=== PATIENT | male | born 1955 | race African-American/Black ===

== ENCOUNTER 2021-10-20 14:19 | Emergency (ER) | payer BC ==
[~2021-10-20] VITALS: Ht 169.7 cm; Wt 92.7 kg
[2021-10-20 14:24] VITALS: BP 133/80
--- NOTE | 2021-10-20 14:35 | NUR ---
PT AMBULATED TO ER BED 7
[2021-10-20 14:51] LABS: BASOPHILS # (AUTO) 0.1 K/uL (0.00-0.22); BASOPHILS % (AUTO) 0.8 % (0.0-2.0); EOSINOPHILS # (AUTO) 0.3 K/uL (0-0.4); EOSINOPHILS % (AUTO) 2.7 % (0.0-4.0); HEMATOCRIT 46.8 % (36-52); HEMOGLOBIN 15.4 g/dL (12.0-18.0); LYMPHOCYTES # (AUTO) 3.4 K/uL (2.0-11.5); LYMPHOCYTES % (AUTO) 35.3 % (20.5-51.1); MEAN CORPUSCULAR HEMOGLOBIN 30 pg (27-31); MEAN CORPUSCULAR HGB CONC 33 g/dL (33-37); MEAN CORPUSCULAR VOLUME 90.1 fL (80-94); MONOCYTES # (AUTO) 0.7 K/uL (0.8-1.0); MONOCYTES % (AUTO) 7.3 % (1.7-9.3); NEUTROPHILS # (AUTO) 5.2 K/uL (1.8-7.7); NEUTROPHILS % (AUTO) 53.9 % (42.2-75.2); PLATELET COUNT (AUTO) 344 K/uL (140-450); RED CELL DISTRIBUTION WIDTH 13.8 % (11.6-13.7); WHITE BLOOD COUNT (AUTO) 9.7 K/uL (4.8-10.8)
[2021-10-20 15:07] LABS: ALBUMIN 3.8 g/dL (3.4-5.0); ANION GAP 9.3 (8-16); CARBON DIOXIDE 30.2 mmol/L (21-32); CREATININE 0.9 mg/dL (0.6-1.3); POTASSIUM 4.5 mmol/L (3.5-5.1); TOTAL BILIRUBIN 0.6 mg/dL (0.0-1.0)
--- NOTE | 2021-10-20 15:39 | NUR ---
66YR OLD MALE BIB SELF C/O ROGERS LOWER EXT EDEMA. SX 3XMONTHS. PAIN 8/10. DENIES SOB OR CP. 2+ EDEMA NO PITTING. FAMILY STATES PT HAS ALSO BEEN DIZZY. PT A&OX4. FAMILY MEMEBER STATES BEHAVIOR DISORDERS. PT FAMILY AT BEDSIDE. 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 SIDE RAILS UP X2. BED AT LOWEST POSITION. NKDA DM
[2021-10-20] MEDS ORDERED: METF-430 PO (16:11)
[2021-10-20 16:45] VITALS: BP 112/65
--- NOTE | 2021-10-20 16:45 | NUR ---
Patient discharged with v/s stable. Written and verbal after care instructions given and explained. Patient alert, oriented and verbalized understanding of instructions. Ambulatory with steady gait. All questions addressed prior to discharge. ID band removed. Patient advised to follow up with PMD. Rx of metformin given. Patient educated on indication of medication including possible reaction and side effects. Opportunity to ask questions provided and answered.
== END 2021-10-20 16:45 | disposition home or self-care (01) ==
LOC: MED 14:19
DX: E11.65 Type 2 diabetes mellitus with hyperglycemia (principal); E11.311 Type 2 diabetes mellitus with unspecified diabetic retinopathy with macular edema; Z79.4 Long term (current) use of insulin; Z79.899 Other long term (current) drug therapy
CPT/HCPCS: 36415; 71045; 80053; 85025; 99284; Q0092